=== PATIENT | male | born 1995 | race Caucasian/White ===

== ENCOUNTER 2016-10-03 17:05 | Inpatient (IN) | payer OTHER, MEDICAID ==
[~2016-10-03] VITALS: Ht 170.2 cm; Wt 71.4 kg
[~2016-10-03 17:05] MED LIST: BUPR75 PO; FLUP5 PO; LITH300C3 PO; LITH600 PO
[2016-10-03] MEDS ORDERED: LORazepam 2 MG/ML VIAL ONE (17:56)
[2016-10-03] MEDS ORDERED: LORazepam 2 MG/ML VIAL IM ONE (18:45)
[2016-10-03 21:25] LABS: BASOPHILS % (AUTO) 0.5 % (0.0-2.0); EOSINOPHILS % (AUTO) 0.5 % (1.0-6.0); HEMOGLOBIN 14.8 g/dL (13.5-17.5); LYMPHOCYTES # (AUTO) 2.2 K/uL (1.0-4.8); LYMPHOCYTES % (AUTO) 33.9 % (22.0-44.0); MEAN CORPUSCULAR HEMOGLOBIN 26.7 pg (26.0-34.0); MEAN CORPUSCULAR HGB CONC 32.9 G/dL (31.0-37.0); MEAN CORPUSCULAR VOLUME 81 fL (80-100); MONOCYTES # (AUTO) 0.7 K/uL (0.1-1.0); NEUTROPHILS # (AUTO) 3.6 K/uL (1.8-7.7); NEUTROPHILS % (AUTO) 55.1 % (40.0-70.0); PLATELET COUNT (AUTO) 334 K/uL (150-450); RED BLOOD CELL COUNT(AUTO) 5.55 MIL/uL (4.50-5.90); RED CELL DISTRIBUTION WIDTH 13.3 % (11.5-14.5); WHITE BLOOD COUNT (AUTO) 6.6 K/uL (4.5-11.0)
[2016-10-03 21:30] LABS: ANION GAP 6 mmol/L (8-16); CALCIUM, TOTAL 9.2 mg/dL (8.8-10.5); CARBON DIOXIDE 28 mmol/L (22-29); CHLORIDE 102 mmol/L (98-107); CREATININE 1.09 mg/dL (0.60-1.30); GLOMERULAR FILTR. RATE CALC > 60 mL/min (>60); POTASSIUM 3.6 mmol/L (3.5-5.1); SODIUM SERUM 136 mmol/L (136-145); UREA NITROGEN, BLOOD 16 mg/dL (7-18)
[2016-10-03] MEDS ORDERED: ESCITALOPRAM OXALATE 20 MG TABLET PO ONE (21:30)
[2016-10-03 21:36] LABS: ALANINE AMINOTRANSFERASE 30 U/L (12-78); ALBUMIN 4.3 g/dL (3.4-5.0); ASPARTATE AMINOTRANSFERASE 26 U/L (15-37); BILIRUBIN,TOTAL 0.6 mg/dL (0.1-1.0); TOTAL PROTEIN, SERUM 7.5 g/dL (6.4-8.2)
[2016-10-04 00:53] VITALS: BP 129/78
[2016-10-04 02:48] LABS: APPEARANCE,URINE CLEAR (CLEAR); GLUCOSE, URINE (UA) NEGATIVE (NEGATIVE); KETONES,URINE TRACE mg/dL (NEGATIVE); LEUKOCYTE ESTERASE ,URINE NEGATIVE (NEGATIVE); OCCULT BLOOD,URINE NEGATIVE (NEGATIVE); PROTEIN,URINE NEGATIVE (NEGATIVE)
[2016-10-04 02:49] LABS: ADD UA MICROSCOPIC NO
[2016-10-04 06:46] LABS: CHOL/HDL RATIO 2.6 (4.2-7.3)
[2016-10-04 08:41] VITALS: BP 160/89
[2016-10-04] MEDS ORDERED: PETROLATUM,WHITE 71 GM JELLY TP PRN (09:30)
[2016-10-04] MEDS ORDERED: BENZOCAINE/MENTHOL LOZENGE MM PRN (09:30)
[2016-10-04] MEDS ORDERED: CloNIDine HCL 0.1 MG TABLET PO PRN (09:30)
[2016-10-04] MEDS ORDERED: ALBUTEROL SULFATE HFA 90 MCG/PUFF 8 GM INHALER IH PRN (09:30)
[2016-10-04] MEDS ORDERED: LOPERAMIDE HCL 2 MG CAPSULE PO PRN (09:30)
[2016-10-04] MEDS ORDERED: MAGNESIUM HYDROXIDE SUSPENSION 30 ML UDCUP PO PRN (09:30)
[2016-10-04] MEDS ORDERED: MAG HYDROX/AL HYDROX/SIMETH ES 30 ML SUSPENSION UDCUP PO PRN (09:30)
[2016-10-04] MEDS ORDERED: ONDANSETRON HCL 4 MG TABLET PO PRN (09:30)
[2016-10-04] MEDS ORDERED: BACITRACIN 28.4 GM OINTMENT TP PRN (09:30)
[2016-10-04] MEDS ORDERED: ACETAMINOPHEN 325 MG TABLET PO PRN (09:30)
[2016-10-04] MEDS ORDERED: BENZOCAINE/MENTHOL LOZENGE [8 LOZENGES/PACKET] MM PRN (10:39)
[2016-10-04] MEDS: LORazepam 2 MG TABLET PO PRN ×2 (12:17→20:36)
[2016-10-04] MEDS ORDERED: AMPHETAMINE/DEXTROAMPHETAMINE 10 MG TABLET PO SCH (17:00)
[2016-10-04] MEDS: LITHIUM CARBONATE 300 MG CAPSULE PO SCH (20:36)
[2016-10-04] MEDS: FluPHENAZine HCL 5 MG TABLET PO SCH (20:46)
[2016-10-04] MEDS ORDERED: LORazepam 2 MG TABLET PO SCH (21:00)
[2016-10-05 06:40] LABS: BASOPHILS % (AUTO) 0.5 % (0.0-2.0); EOSINOPHILS % (AUTO) 1.9 % (1.0-6.0); HEMATOCRIT 43.7 % (41-53); HEMOGLOBIN 14.3 g/dL (13.5-17.5); LYMPHOCYTES # (AUTO) 2.1 K/uL (1.0-4.8); LYMPHOCYTES % (AUTO) 38.1 % (22.0-44.0); MEAN CORPUSCULAR HEMOGLOBIN 27.1 pg (26.0-34.0); MEAN CORPUSCULAR HGB CONC 32.7 G/dL (31.0-37.0); MEAN CORPUSCULAR VOLUME 83 fL (80-100); MONOCYTES # (AUTO) 0.6 K/uL (0.1-1.0); MONOCYTES % (AUTO) 10.2 % (2.0-9.0); NEUTROPHILS # (AUTO) 2.7 K/uL (1.8-7.7); NEUTROPHILS % (AUTO) 49.3 % (40.0-70.0); PLATELET COUNT (AUTO) 309 K/uL (150-450); RED BLOOD CELL COUNT(AUTO) 5.28 MIL/uL (4.50-5.90); RED CELL DISTRIBUTION WIDTH 13.2 % (11.5-14.5); WHITE BLOOD COUNT (AUTO) 5.5 K/uL (4.5-11.0)
[2016-10-05] MEDS: LORazepam 2 MG TABLET PO PRN ×2 (06:43→23:59)
[2016-10-05 06:55] LABS: LITHIUM 0.39 mmol/L (0.60-1.20)
[2016-10-05 07:12] LABS: ALANINE AMINOTRANSFERASE 31 U/L (12-78); ALBUMIN 3.8 g/dL (3.4-5.0); ANION GAP 8 mmol/L (8-16); ASPARTATE AMINOTRANSFERASE 18 U/L (15-37); BILIRUBIN,TOTAL 0.6 mg/dL (0.1-1.0); CALCIUM, TOTAL 8.5 mg/dL (8.8-10.5); CARBON DIOXIDE 27 mmol/L (22-29); CHLORIDE 103 mmol/L (98-107); CREATININE 0.92 mg/dL (0.60-1.30); GLOMERULAR FILTR. RATE CALC > 60 mL/min (>60); POTASSIUM 3.8 mmol/L (3.5-5.1); SODIUM SERUM 138 mmol/L (136-145); THYROID STIMULATING HORMONE 1.09 uIU/mL (0.36-3.74); TOTAL PROTEIN, SERUM 6.7 g/dL (6.4-8.2); UREA NITROGEN, BLOOD 12 mg/dL (7-18)
[2016-10-05] MEDS ORDERED: LITHIUM CARBONATE 600 MG CAPSULE PO SCH (09:00)
[2016-10-05] MEDS: LITHIUM CARBONATE 600 MG CAPSULE PO SCH (09:23)
[2016-10-05] MEDS: BuPROPion HCL 75 MG TABLET PO SCH (09:24)
[2016-10-05] MEDS: LITHIUM CARBONATE 300 MG CAPSULE PO SCH (21:08)
[2016-10-05] MEDS: FluPHENAZine HCL 5 MG TABLET PO SCH (21:08)
[2016-10-06] MEDS: ZOLPIDEM TARTRATE 10 MG TABLET PO PRN
[2016-10-06 08:05] VITALS: BP 131/78
[2016-10-06] MEDS: LITHIUM CARBONATE 600 MG CAPSULE PO SCH (10:04)
[2016-10-06] MEDS: BuPROPion HCL 75 MG TABLET PO SCH (10:04)
[2016-10-06 16:30] VITALS: BP 126/71
[2016-10-06] MEDS: LITHIUM CARBONATE 300 MG CAPSULE PO SCH (20:10)
[2016-10-06] MEDS: FluPHENAZine HCL 5 MG TABLET PO SCH (20:10)
[2016-10-07] MEDS: AMPHETAMINE/DEXTROAMPHETAMINE 10 MG TABLET PO SCH ×2 (09:15→17:32)
[2016-10-07 09:17] VITALS: BP 140/84
[2016-10-07] MEDS: BuPROPion HCL 75 MG TABLET PO SCH (09:18)
[2016-10-07] MEDS: LITHIUM CARBONATE 600 MG CAPSULE PO SCH (09:18)
[2016-10-07] MEDS ORDERED: BENZTROPINE MESYLATE 1 MG TABLET PO SCH (10:30)
[2016-10-07] MEDS ORDERED: DiphenhydrAMINE HCL 50 MG/ML VIAL IM ONE (13:30)
[2016-10-07] MEDS ORDERED: DICLOFENAC SODIUM 1% 100 GM GEL [2GM] TP PRN (15:30)
[2016-10-07] MEDS: BENZTROPINE MESYLATE 2 MG TABLET PO SCH (17:32)
[2016-10-07] MEDS: FluPHENAZine HCL 5 MG TABLET PO SCH (20:17)
[2016-10-07] MEDS: LITHIUM CARBONATE 300 MG CAPSULE PO SCH (20:18)
[2016-10-08] MEDS: ZOLPIDEM TARTRATE 10 MG TABLET PO PRN ×2 (00:04→22:12)
[2016-10-08 08:43] VITALS: BP 128/88
[2016-10-08] MEDS: LITHIUM CARBONATE 600 MG CAPSULE PO SCH (09:06)
[2016-10-08] MEDS: AMPHETAMINE/DEXTROAMPHETAMINE 10 MG TABLET PO SCH ×2 (09:06→17:31)
[2016-10-08] MEDS: BENZTROPINE MESYLATE 2 MG TABLET PO SCH ×2 (09:07→17:31)
[2016-10-08] MEDS: BuPROPion HCL 75 MG TABLET PO SCH (09:07)
[2016-10-08] MEDS: LORazepam 2 MG TABLET PO PRN (11:53)
[2016-10-08 14:15] VITALS: BP 121/69
[2016-10-08] MEDS: IBUPROFEN 600 MG TABLET PO PRN (14:15)
[2016-10-08 20:22] VITALS: BP 127/77
[2016-10-08] MEDS: LITHIUM CARBONATE 300 MG CAPSULE PO SCH (21:14)
[2016-10-08] MEDS: FluPHENAZine HCL 5 MG TABLET PO SCH (21:14)
[2016-10-09 00:36] VITALS: BP 125/55
[2016-10-09] MEDS: LORazepam 2 MG TABLET PO PRN ×2 (01:04→20:07)
[2016-10-09] MEDS: IBUPROFEN 600 MG TABLET PO PRN ×2 (03:39→16:51)
[2016-10-09] MEDS: LITHIUM CARBONATE 600 MG CAPSULE PO SCH (08:10)
[2016-10-09] MEDS: BuPROPion HCL 75 MG TABLET PO SCH (08:10)
[2016-10-09] MEDS: BENZTROPINE MESYLATE 2 MG TABLET PO SCH ×2 (08:10→16:37)
[2016-10-09] MEDS: AMPHETAMINE/DEXTROAMPHETAMINE 10 MG TABLET PO SCH ×2 (08:10→16:37)
[2016-10-09 08:43] VITALS: BP 117/80
[2016-10-09] MEDS: NICOTINE 21 MG/24 HOUR PATCH TD SCH (15:30)
[2016-10-09 16:50] VITALS: BP 114/68
[2016-10-09] MEDS: FluPHENAZine HCL 5 MG TABLET PO SCH (20:07)
[2016-10-09] MEDS: LITHIUM CARBONATE 300 MG CAPSULE PO SCH (20:08)
[2016-10-09] MEDS: ZOLPIDEM TARTRATE 10 MG TABLET PO PRN (21:43)
[2016-10-10 06:00] VITALS: BP 118/78
[2016-10-10] MEDS: IBUPROFEN 600 MG TABLET PO PRN (06:08)
[2016-10-10] MEDS: BENZTROPINE MESYLATE 2 MG TABLET PO SCH ×2 (08:25→17:57)
[2016-10-10] MEDS: AMPHETAMINE/DEXTROAMPHETAMINE 10 MG TABLET PO SCH ×2 (08:26→15:04)
[2016-10-10] MEDS: LITHIUM CARBONATE 600 MG CAPSULE PO SCH (08:26)
[2016-10-10] MEDS: NICOTINE 21 MG/24 HOUR PATCH TD SCH (08:27)
[2016-10-10] MEDS: BuPROPion HCL 75 MG TABLET PO SCH (08:28)
[2016-10-10 08:33] VITALS: BP 120/70
[2016-10-10] MEDS ORDERED: FluPHENAZine HCL 5 MG TABLET PO SCH (15:00)
[2016-10-10 18:54] VITALS: BP 129/78
[2016-10-10] MEDS: LITHIUM CARBONATE 300 MG CAPSULE PO SCH (21:18)
[2016-10-11] MEDS: LITHIUM CARBONATE 600 MG CAPSULE PO SCH (08:21)
[2016-10-11] MEDS: AMPHETAMINE/DEXTROAMPHETAMINE 10 MG TABLET PO SCH ×2 (08:22→14:49)
[2016-10-11] MEDS: BENZTROPINE MESYLATE 2 MG TABLET PO SCH ×2 (08:22→16:17)
[2016-10-11] MEDS: BuPROPion HCL 75 MG TABLET PO SCH (08:23)
[2016-10-11] MEDS: NICOTINE 21 MG/24 HOUR PATCH TD SCH (08:23)
[2016-10-11] MEDS ORDERED: AMPHETAMINE/DEXTROAMPHETAMINE 10 MG TABLET PO SCH (09:00)
[2016-10-11 09:01] VITALS: BP 132/66
[2016-10-11 16:17] VITALS: BP 129/69
[2016-10-11] MEDS: IBUPROFEN 600 MG TABLET PO PRN (16:17)
[2016-10-11] MEDS ORDERED: BENZ2TAB10 PO (20:20)
[2016-10-11] MEDS: LITHIUM CARBONATE 300 MG CAPSULE PO SCH (20:34)
[2016-10-13] MEDS ORDERED: ESCI20TA PO (15:57)
== END 2016-10-11 22:45 | disposition home or self-care (01) | DRG 885 ==
LOC: EMS 17:08 → 3EC 21:42 → 3EI 10-11 18:22
PROVIDERS: ADMIT Psychiatry & Neurology Child & Adolescent Psychiatry; ATTEND Psychiatry & Neurology Child & Adolescent Psychiatry
DX: F25.0 Schizoaffective disorder, bipolar type (principal); R45.851 Suicidal ideations; F12.90 Cannabis use, unspecified, uncomplicated; F15.10 Other stimulant abuse, uncomplicated; F17.200 Nicotine dependence, unspecified, uncomplicated; G47.00 Insomnia, unspecified; H54.7 Unspecified visual loss; M54.5 Low back pain; Z79.899 Other long term (current) drug therapy; Z91.19 Patient's noncompliance with other medical treatment and regimen; Z88.8 Allergy status to other drugs, medicaments and biological substances; Z81.8 Family history of other mental and behavioral disorders
CPT/HCPCS: 82306; 84443; 96372; 99285; G0480; J2060

== ENCOUNTER 2018-07-13 12:22 | Inpatient (IN) | payer OTHER, MEDICAID ==
[~2018-07-13] VITALS: Ht 170.2 cm; Wt 71.3 kg
[~2018-07-13 12:22] MED LIST changes: +BUPR150SR PO; -BUPR75 PO; +ESCI20TA PO; -FLUP5 PO; +PROP10TA73 PO; +TRAZ-220 PO; +VITAD1000 PO
[2018-07-13] MEDS ORDERED: LURA40 PO (12:51)
[2018-07-13 14:51] LABS: BASOPHILS % (AUTO) 0.5 % (0.0-2.0); EOSINOPHILS % (AUTO) 0.9 % (1.0-6.0); HEMATOCRIT 46.3 % (41-53); HEMOGLOBIN 14.9 g/dL (13.5-17.5); LYMPHOCYTES % (AUTO) 29.6 % (22.0-44.0); MEAN CORPUSCULAR HEMOGLOBIN 26.2 pg (26.0-34.0); MEAN CORPUSCULAR HGB CONC 32.3 G/dL (31.0-37.0); MEAN CORPUSCULAR VOLUME 81 fL (80-100); MONOCYTES # (AUTO) 0.5 K/uL (0.1-1.0); MONOCYTES % (AUTO) 7.8 % (2.0-9.0); NEUTROPHILS # (AUTO) 4.2 K/uL (1.8-7.7); NEUTROPHILS % (AUTO) 61.2 % (40.0-70.0); PLATELET COUNT (AUTO) 367 K/uL (150-450); RED CELL DISTRIBUTION WIDTH 13.4 % (11.5-14.5)
[2018-07-13 15:19] LABS: ANION GAP 11 mmol/L (8-16); CALCIUM, TOTAL 9.4 mg/dL (8.8-10.5); CARBON DIOXIDE 27 mmol/L (22-29); CHLORIDE 101 mmol/L (98-107); CREATININE 0.84 mg/dL (0.60-1.30); GLOMERULAR FILTR. RATE CALC > 60 mL/min (>60); GLUCOSE,RANDOM 104 mg/dL (70-110); POTASSIUM 3.5 mmol/L (3.5-5.1); SODIUM SERUM 139 mmol/L (136-145); UREA NITROGEN, BLOOD 13 mg/dL (7-18)
[2018-07-13 15:20] LABS: LITHIUM 0.37 mmol/L (0.60-1.20)
[2018-07-13 15:25] LABS: ALANINE AMINOTRANSFERASE 27 U/L (12-78); ALBUMIN 4.4 g/dL (3.4-5.0); ALKALINE PHOSPHATASE 78 U/L (46-116); ASPARTATE AMINOTRANSFERASE 19 U/L (15-37); BILIRUBIN,TOTAL 0.6 mg/dL (0.1-1.0); TOTAL PROTEIN, SERUM 7.9 g/dL (6.4-8.2)
[2018-07-13 15:40] LABS: AMPHET/METH SCREEN,URINE NEGATIVE (NEGATIVE); BARBITURATE SCREEN, URINE NEGATIVE (NEGATIVE); BENZODIAZEPINES SCREEN,URINE NEGATIVE (NEGATIVE); CANNABINOID SCREEN,URINE POSITIVE (NEGATIVE); COCAINE SCREEN,URINE NEGATIVE (NEGATIVE); METHADONE SCREEN, URINE NEGATIVE (NEGATIVE); OPIATE SCREEN,URINE NEGATIVE (NEGATIVE); PHENCYCLIDINE SCREEN,URINE NEGATIVE (NEGATIVE)
[2018-07-13] MEDS ORDERED: LURA60TA PO (16:41)
[2018-07-13] MEDS ORDERED: GuaiFENesin/D-METHORPHAN [SUGAR-FREE] 200-20MG/10 ML SYRUP UDCUP PO PRN (16:45)
[2018-07-13] MEDS ORDERED: ZOLPIDEM TARTRATE 10 MG TABLET PO PRN (16:45)
[2018-07-13] MEDS ORDERED: TUBERCULIN, PURIFIED PROTEIN DERIVATIVE 5 TU/0.1 ML SYRINGE ID ONE (16:45)
[2018-07-13] MEDS ORDERED: QUEtiapine FUMARATE 100 MG TABLET PO PRN (16:45)
[2018-07-13] MEDS ORDERED: ACETAMINOPHEN 325 MG TABLET PO PRN (16:45)
[2018-07-13] MEDS ORDERED: PROMETHAZINE HCL 25 MG TABLET PO PRN (16:45)
[2018-07-13] MEDS ORDERED: LOPERAMIDE HCL 2 MG CAPSULE PO PRN (16:45)
[2018-07-13] MEDS ORDERED: MAGNESIUM HYDROXIDE SUSPENSION 30 ML UDCUP PO PRN (16:45)
[2018-07-13] MEDS ORDERED: MAG HYDROX/AL HYDROX/SIMETH ES 30 ML SUSPENSION UDCUP PO PRN (16:45)
[2018-07-13] MEDS ORDERED: HydrOXYzine PAMOATE 50 MG CAPSULE PO PRN (16:45)
[2018-07-13 19:27] VITALS: BP 137/70
[2018-07-13] MEDS: LORazepam 2 MG TABLET PO PRN (19:35)
[2018-07-13] MEDS: THIAMINE HCL 100 MG TABLET PO SCH (19:37)
[2018-07-13] MEDS: QUEtiapine FUMARATE 200 MG TABLET PO SCH (20:12)
[2018-07-13] MEDS: DIVALPROEX SODIUM 500 MG ER TABLET PO SCH (20:12)
[2018-07-13] MEDS: LITHIUM CARBONATE 600 MG CAPSULE PO SCH (20:12)
[2018-07-14 08:06] VITALS: BP 139/95
[2018-07-14] MEDS: FOLIC ACID 1 MG TABLET PO SCH (09:14)
[2018-07-14] MEDS: THIAMINE HCL 100 MG TABLET PO SCH ×2 (09:14→16:56)
[2018-07-14] MEDS: MULTIVITAMINS WITH MINERALS, THERAPEUTIC TABLET PO SCH (09:15)
[2018-07-14] MEDS: CHOLECALCIFEROL (VIT D3) 1,000 UNITS TABLET PO SCH (09:15)
[2018-07-14] MEDS: NALTREXONE HCL 50 MG TABLET PO SCH (09:15)
[2018-07-14 16:00] VITALS: BP 131/85
[2018-07-14] MEDS: LORazepam 2 MG TABLET PO PRN (16:56)
[2018-07-14] MEDS: LITHIUM CARBONATE 600 MG CAPSULE PO SCH (20:41)
[2018-07-14] MEDS: DIVALPROEX SODIUM 500 MG ER TABLET PO SCH (20:41)
[2018-07-14] MEDS: QUEtiapine FUMARATE 200 MG TABLET PO SCH (20:42)
[2018-07-15 05:28] VITALS: BP_SYST 129; BP_SYST 135; BP_DIAS 79; BP_DIAS 82
[2018-07-15 08:38] VITALS: BP 138/76
[2018-07-15] MEDS: FOLIC ACID 1 MG TABLET PO SCH (08:48)
[2018-07-15] MEDS: CHOLECALCIFEROL (VIT D3) 1,000 UNITS TABLET PO SCH (08:48)
[2018-07-15] MEDS: MULTIVITAMINS WITH MINERALS, THERAPEUTIC TABLET PO SCH (08:48)
[2018-07-15] MEDS: NALTREXONE HCL 50 MG TABLET PO SCH (08:48)
[2018-07-15] MEDS: THIAMINE HCL 100 MG TABLET PO SCH ×2 (08:48→16:28)
[2018-07-15] MEDS: LORazepam 2 MG TABLET PO PRN (08:48)
[2018-07-15] MEDS ORDERED: PALIPERIDONE 3 MG ER TABLET PO PRN (16:15)
[2018-07-15 16:32] VITALS: BP 115/78
[2018-07-15] MEDS: PROPRANOLOL HCL 10 MG TABLET PO SCH (17:20)
[2018-07-15] MEDS ORDERED: PALIPERIDONE 3 MG ER TABLET PO SCH (21:00)
[2018-07-15] MEDS: LITHIUM CARBONATE 600 MG CAPSULE PO SCH (21:15)
[2018-07-15] MEDS: DIVALPROEX SODIUM 500 MG ER TABLET PO SCH (21:15)
[2018-07-15] MEDS: ONDANSETRON HCL 4 MG/2 ML VIAL IM PRN (22:38)
[2018-07-16 04:34] VITALS: BP 117/73
[2018-07-16] MEDS: NALTREXONE HCL 50 MG TABLET PO SCH (08:12)
[2018-07-16] MEDS: THIAMINE HCL 100 MG TABLET PO SCH ×2 (08:12→16:58)
[2018-07-16] MEDS: FOLIC ACID 1 MG TABLET PO SCH (08:12)
[2018-07-16] MEDS: MULTIVITAMINS WITH MINERALS, THERAPEUTIC TABLET PO SCH (08:12)
[2018-07-16 08:19] VITALS: BP 120/64
[2018-07-16 08:40] LABS: LITHIUM 0.86 mmol/L (0.60-1.20)
[2018-07-16] MEDS: CHOLECALCIFEROL (VIT D3) 1,000 UNITS TABLET PO SCH (08:42)
[2018-07-16] MEDS: PROPRANOLOL HCL 10 MG TABLET PO SCH ×3 (09:00→16:58)
[2018-07-16] MEDS ORDERED: PALIPERIDONE PALMITATE 234 MG/1.5 ML SYRINGE IM ONE (15:45)
[2018-07-16] MEDS ORDERED: PROP10TA72 PO (15:51)
[2018-07-16] MEDS ORDERED: PALI117D IM (15:51)
[2018-07-16] MEDS ORDERED: NALT50TA PO (15:51)
[2018-07-16] MEDS ORDERED: LITH600 PO (15:51)
[2018-07-16] MEDS ORDERED: DIVA500T52 PO (15:51)
[2018-07-16 16:28] VITALS: BP 117/77
[2018-07-16] MEDS: LITHIUM CARBONATE 600 MG CAPSULE PO SCH (20:42)
[2018-07-16] MEDS: DIVALPROEX SODIUM 500 MG ER TABLET PO SCH (20:42)
[2018-07-16] MEDS: ONDANSETRON HCL 4 MG/2 ML VIAL IM PRN (20:43)
[2018-07-17 00:36] VITALS: BP 119/61
[2018-07-17] MEDS: CHOLECALCIFEROL (VIT D3) 1,000 UNITS TABLET PO SCH (09:31)
[2018-07-17] MEDS: NALTREXONE HCL 50 MG TABLET PO SCH (09:31)
[2018-07-17] MEDS: THIAMINE HCL 100 MG TABLET PO SCH (09:31)
[2018-07-17] MEDS: PROPRANOLOL HCL 10 MG TABLET PO SCH (09:31)
[2018-07-17] MEDS: MULTIVITAMINS WITH MINERALS, THERAPEUTIC TABLET PO SCH (09:31)
[2018-07-17] MEDS: FOLIC ACID 1 MG TABLET PO SCH (09:31)
[2018-07-17 09:36] VITALS: BP 137/64
[2018-07-17] MEDS ORDERED: NALT50TA6 PO (09:52)
[2018-07-17] MEDS ORDERED: PROP10TA73 PO (09:52)
[2018-07-17] MEDS ORDERED: DIVA500T52 PO (12:52)
[2018-08-13] MEDS ORDERED: PALIPERIDONE PALMITATE 117 MG/0.75 ML SYRINGE IM SCH (09:00)
== END 2018-07-17 12:30 | disposition home or self-care (01) | DRG 885 ==
LOC: EMS 12:23 → B3A 17:25
PROVIDERS: ADMIT Psychiatry & Neurology Psychiatry; ATTEND Psychiatry & Neurology Psychiatry
DX: F20.0 Paranoid schizophrenia (principal); Z88.8 Allergy status to other drugs, medicaments and biological substances; Z81.8 Family history of other mental and behavioral disorders; Z91.19 Patient's noncompliance with other medical treatment and regimen; E55.9 Vitamin D deficiency, unspecified; D64.9 Anemia, unspecified; F12.10 Cannabis abuse, uncomplicated; F31.9 Bipolar disorder, unspecified; F41.1 Generalized anxiety disorder; K21.9 Gastro-esophageal reflux disease without esophagitis
CPT/HCPCS: G0480; J2405